=== PATIENT | male | born 1950 | race Caucasian/White ===

== ENCOUNTER 2017-10-01 17:10 | Emergency (ER) | payer MEDICARE ==
--- NOTE | 2017-10-01 18:36 | EDM.PDOC ---
ED HPI GENERAL MEDICAL PROBLEM - General Chief Complaint: Genitourinary Problem Stated Complaint: BLADDER INFECTION Time Seen by Provider: 10/01/17 18:35 Source of Information: Reports: Patient History Limitations: Reports: No Limitations - History of Present Illness INITIAL COMMENTS - FREE TEXT/NARRATIVE: HISTORY AND PHYSICAL: History of present illness: Patient is a 67-year-old male who presents to the emergency room today with complaints of urinary retention with urination. He states he does have a history of BPH and has been taking medications provided by his primary caregiver , Dr. Dos Santos 3 years. Has not seen a urologist for any previous genitourinary urinary conditions. He denies any fever, chills, chest pain, shortness of breath or cough. Denies any abdominal pain, nausea, vomiting, diarrhea or constipation. Review of systems: As per history of present illness and below otherwise all systems reviewed and negative. Past medical history: As per history of present illness and as reviewed below otherwise noncontributory. Surgical history: As per history of present illness and as reviewed below otherwise noncontributory. Social history: No reported history of drug or alcohol abuse. Family history: As per history of present illness and as reviewed below otherwise noncontributory. Physical exam: General: Well-developed and well-nourished 67-year-old male. Alert and oriented. Nontoxic appearing and in no acute distress. HEENT: Atraumatic, normocephalic, pupils equal and reactive bilaterally, negative for conjunctival pallor or scleral icterus, mucous membranes moist, throat clear, neck supple, nontender, trachea midline. No drooling or trismus noted. No meningeal signs Lungs: Clear to auscultation, breath sounds equal bilaterally, chest nontender. Heart: S1S2, regular rate and rhythm without overt murmur Abdomen: Soft, nondistended, nontender. Negative for masses or hepatosplenomegaly. Negative for costovertebral tenderness. Pelvis: Stable, suprapubic tenderness, semi-distended and firm. Genitourinary: Deferred. Rectal: Deferred. Skin: Intact, warm, dry. No lesions or rashes noted. Extremities: Atraumatic, negative for cords or calf pain. Neurovascular unremarkable. Neuro: Awake, alert, oriented. Cranial nerves II through XII unremarkable. Cerebellum unremarkable. Motor and sensory unremarkable throughout. Exam nonfocal. Notes: Bladder scanner shows greater than 700 prior to voiding. A catheter was inserted to alleviate his discomfort, 900 was drainage from the Sapp catheter. Urinalysis is negative for UTI or blood. I did contact Dr. Guzman, the urologist, who is agreeable to seeing this patient in clinic tomorrow. We will keep the Sapp in place and provided patient with education and a leg bag. At this time the patient does not need any antibiotics. A CMP will be added per Dr. Guzman's request. All this information was shared with the patient. He is agreeable to plan of care and denies any further questions at this time. Diagnostics: UA, bladder scanner Therapeutics: Sapp catheter insertion Impression: Urinary retention Plan: 1. Please continue to provide good edie-care and drain the catheter as needed. 2. Follow up with Dr Martínez tomorrow for further evaluation and management ( call early tomorrow morning to set up your appointment). 3. Return to the ED as needed and as discussed. Definitive disposition and diagnosis as appropriate pending reevaluation and review of above. Duration: Day(s): Location: Reports: Pelvis Bladder Pain Score (Numeric/FACES): 7 - Related Data Allergies Allergy/AdvReac Type Severity Reaction Status Date / Time No Known Allergies Allergy Verified 10/01/17 17:34 Home Meds: Home Meds . [Unable to Verify Home Med List] 10/01/17 [History] Past Medical History Genitourinary History: Reports: Prostate Disorder Social & Family History - Tobacco Use Smoking Status *Q: Never Smoker ED ROS GENERAL - Review of Systems Review Of Systems: ROS reveals no pertinent complaints other than HPI. ED EXAM, GI/ABD - Physical Exam Exam: See Below (See dictation) Course - Vital Signs Last Recorded V/S: Last Vital Signs Temp 96.8 F 10/01/17 17:34 Pulse 70 10/01/17 17:34 Resp 16 10/01/17 17:34 BP 186/90 H 10/01/17 17:34 Pulse Ox 95 10/01/17 17:34 - Orders/Labs/Meds Orders: Active Orders 24 hr Category Date Time Status CMP [COMPREHENSIVE METABOLIC PN,CMP] [CHEM] Stat Lab 10/01/17 18:41 Ordered UA W/MICROSCOPIC [URIN] Stat Lab 10/01/17 18:08 Ordered Labs: Laboratory Tests 10/01/17 Range/Units 18:08 Urine Color YELLOW Urine Appearance CLEAR Urine pH 6.0 (5.0-8.0) Ur Specific [place] 1.020 (1.001-1.035) Urine Protein NEGATIVE (NEGATIVE) mg/dL Urine Glucose (UA) NEGATIVE (NEGATIVE) mg/dL Urine Ketones NEGATIVE (NEGATIVE) mg/dL Urine Occult Blood TRACE-INTACT (NEGATIVE) Urine Nitrite NEGATIVE (NEGATIVE) Urine Bilirubin NEGATIVE (NEGATIVE) Urine Urobilinogen 0.2 (<2.0) EU/dL Ur Leukocyte Esterase NEGATIVE (NEGATIVE) Urine RBC 0-2 (0-2/HPF) Urine WBC 0-2 (0-5/HPF) Ur Epithelial Cells RARE (NONE-FEW) Urine Bacteria RARE (NEGATIVE) Urine Mucus LIGHT (NONE-MOD) Departure - Departure Time of Disposition: 18:49 Disposition: Home, Self-Care 01 Clinical Impression: Urinary retention - Discharge Information Referrals: Eduardo Dos Santos MD [Primary Care Provider] - Forms: ED Department Discharge Additional Instructions: The following information is given to patients seen in the emergency department who are being discharged to home. This information is to outline your options for follow-up care. We provide all patients seen in our emergency department with a follow-up referral. The need for follow-up, as well as the timing and circumstances, are variable depending upon the specifics of your emergency department visit. If you don't have a primary care physician on staff, we will provide you with a referral. We always advise you to contact your personal physician following an emergency department visit to inform them of the circumstance of the visit and for follow-up with them and/or the need for any referrals to a consulting specialist. The emergency department will also refer you to a specialist when appropriate. This referral assures that you have the opportunity for follow-up care with a specialist. All of these measure are taken in an effort to provide you with optimal care, which includes your follow-up. Under all circumstances we always encourage you to contact your private physician who remains a resource for coordinating your care. When calling for follow-up care, please make the office aware that this follow-up is from your recent emergency room visit. If for any reason you are refused follow-up, please contact the [facility] Emergency Department at and asked to speak to the emergency department charge nurse. [facility] Specialty Care - Urology [facility] [place] [address] 1. Please continue to provide good edie-care and drain the catheter as needed. 2. Follow up with Dr Martínez tomorrow for further evaluation and management ( call early tomorrow morning to set up your appointment). 3. Return to the ED as needed and as discussed. - My Orders Last 24 Hours: My Active Orders 10/01/17 18:08 UA W/MICROSCOPIC [URIN] Stat 10/01/17 18:41 CMP [COMPREHENSIVE METABOLIC PN,CMP] [CHEM] Stat - Assessment/Plan Last 24 Hours: My Active Orders 10/01/17 18:08 UA W/MICROSCOPIC [URIN] Stat 10/01/17 18:41 CMP [COMPREHENSIVE METABOLIC PN,CMP] [CHEM] Stat
[2017-10-01 19:16] LABS: CHLORIDE,CL 104 mmol/L (98-107); SODIUM,NA 140 mmol/L (136-148)
== END 2017-10-01 19:15 | disposition home or self-care (01) ==
LOC: MW.ED 17:10
DX: R33.9 Retention of urine, unspecified (principal)
CPT/HCPCS: 36415; 80053; 81001; 99283

== ENCOUNTER 2017-10-05 21:41 | Emergency (ER) | payer MEDICARE ==
--- NOTE | 2017-10-05 21:51 | EDM.PDOC ---
ED HPI GENERAL MEDICAL PROBLEM - General Chief Complaint: Genitourinary Problem Stated Complaint: DIFFICULTY URINATING Time Seen by Provider: 10/05/17 21:51 Source of Information: Reports: Patient History Limitations: Reports: No Limitations - History of Present Illness INITIAL COMMENTS - FREE TEXT/NARRATIVE: HISTORY AND PHYSICAL: History of present illness: 67-year-old male visiting emergency department with chief complaint of urinary retention. Patient states that he was seen here in the emergency department this last Monday 4 days ago for similar symptoms. At that time they did a bladder scan as well as put acatheter and scheduled him to see Dr. Martínez, urologist. States that at that time his urine was fine with no signs of infection. He did see Dr. Guzman today who told him that he deftly need surgery for enlarged prostate. Sheen at that time and told him that if he removed his catheter he may have problems with urination and needed replaced. States he did remove the catheter and hasn't been able to urinate since 1600 today. Denies any fever, chills, nausea, vomiting, or other signs of systemic infection. Does report some recent dysuria. Currently denies any chest pain, palpitations, shortness breath, syncopal, or focal neurologic deficits. Review of systems: As per history of present illness and below otherwise all systems reviewed and negative. Past medical history: As per history of present illness and as reviewed below otherwise noncontributory. Surgical history: As per history of present illness and as reviewed below otherwise noncontributory. Social history: No reported history of drug or alcohol abuse. Family history: As per history of present illness and as reviewed below otherwise noncontributory. Physical exam: HEENT: Atraumatic, normocephalic, pupils reactive, negative for conjunctival pallor or scleral icterus, mucous membranes moist, throat clear, neck supple, nontender, trachea midline. Lungs: Clear to auscultation, breath sounds equal bilaterally, chest nontender. Heart: S1S2, regular, negative for clicks, rubs, or JVD. Abdomen: Soft, nondistended, nontender. Negative for masses or hepatosplenomegaly. Negative for costovertebral tenderness. Pelvis: Stable nontender. Genitourinary: Deferred. Rectal: Deferred. Extremities: Atraumatic, negative for cords or calf pain. Neurovascular unremarkable. Neuro: Awake, alert, oriented. Cranial nerves II through XII unremarkable. Cerebellum unremarkable. Motor and sensory unremarkable throughout. Exam nonfocal. Diagnostics: Bladder scan Therapeutics: Urinary catheter Impression: Urinary retention BPH Plan: Bladder scan showed 438 and urine catheter was placed without complication. We did check a UA which showed no signs of acute infection. Patient was discharged and instructed to follow-up with Dr. Martínez which he will do tomorrow. He was instructed to return to emergency department if he had any new or worsening symptoms. hypogastric Pain Score (Numeric/FACES): 7 - Related Data Allergies Allergy/AdvReac Type Severity Reaction Status Date / Time No Known Allergies Allergy Verified 10/05/17 22:03 Home Meds: Home Meds Lisinopril 1 tab PO DAILY 10/05/17 [History] Tamsulosin [Flomax] 1 cap PO DAILY 10/05/17 [History] Past Medical History Genitourinary History: Reports: Prostate Disorder ED ROS GENERAL - Review of Systems Review Of Systems: ROS reveals no pertinent complaints other than HPI. ED EXAM, GENERAL - Physical Exam Exam: See Below Course - Vital Signs Last Recorded V/S: Last Vital Signs Temp 97.5 F 10/05/17 21:41 Pulse 83 10/05/17 21:41 Resp 16 10/05/17 21:41 BP 155/90 H 10/05/17 21:41 Pulse Ox 94 L 10/05/17 21:41 - Orders/Labs/Meds Orders: Active Orders 24 hr Category Date Time Status Urinary Catheter Assessment [RC] ASDIRECTED Care 10/05/17 23:11 Ordered CULTURE URINE [RM] Stat Lab 10/05/17 23:00 Received UA W/MICROSCOPIC [URIN] Stat Lab 10/05/17 23:00 Received Departure - Departure Time of Disposition: 23:13 Disposition: Home, Self-Care 01 Condition: Good Clinical Impression: Urinary retention due to benign prostatic hyperplasia - Discharge Information Referrals: Eduardo Dos Santos MD [Primary Care Provider] - Forms: ED Department Discharge Additional Instructions: My general discharge The following information is given to patients seen in the emergency department who are being discharged to home. This information is to outline your options for follow-up care. We provide all patients seen in our emergency department with a follow-up referral. The need for follow-up, as well as the timing and circumstances, are variable depending upon the specifics of your emergency department visit. If you don't have a primary care physician on staff, we will provide you with a referral. We always advise you to contact your personal physician following an emergency department visit to inform them of the circumstance of the visit and for follow-up with them and/or the need for any referrals to a consulting specialist. The emergency department will also refer you to a specialist when appropriate. This referral assures that you have the opportunity for follow-up care with a specialist. All of these measure are taken in an effort to provide you with optimal care, which includes your follow-up. Under all circumstances we always encourage you to contact your private physician who remains a resource for coordinating your care. When calling for follow-up care, please make the office aware that this follow-up is from your recent emergency room visit. If for any reason you are refused follow-up, please contact the [facility] Emergency Department at and asked to speak to the emergency department charge nurse. [facility] Specialty Care - Urology [address] [place] [address] Follow-up with urology. Return to emergency department if any new or worsening symptoms. - My Orders Last 24 Hours: My Active Orders 10/05/17 23:00 CULTURE URINE [RM] Stat UA W/MICROSCOPIC [URIN] Stat 10/05/17 23:11 Urinary Catheter Assessment [RC] ASDIRECTED - Assessment/Plan Last 24 Hours: My Active Orders 10/05/17 23:00 CULTURE URINE [RM] Stat UA W/MICROSCOPIC [URIN] Stat 10/05/17 23:11 Urinary Catheter Assessment [RC] ASDIRECTED
== END 2017-10-05 23:40 | disposition home or self-care (01) ==
LOC: MW.ED 21:41
DX: N40.1 Benign prostatic hyperplasia with lower urinary tract symptoms (principal); R33.8 Other retention of urine
CPT/HCPCS: 81001; 87086; 99283

== ENCOUNTER 2017-12-26 09:28 | Emergency (ER) | payer MEDICARE ==
--- NOTE | 2017-12-26 09:50 | EDM.PDOC ---
ED HPI GENERAL MEDICAL PROBLEM - General Chief Complaint: Genitourinary Problem Stated Complaint: CATHETER LEAKAGE Time Seen by Provider: 12/26/17 09:30 Source of Information: Reports: Patient History Limitations: Reports: No Limitations - History of Present Illness INITIAL COMMENTS - FREE TEXT/NARRATIVE: History of present illness: []Patient has prostate mass and has an indwelling catheter that is now leaking. He was initially put in 30 days ago and has not been changed since. Review of systems: As per history of present illness and below otherwise all systems reviewed and negative. Past medical history: As per history of present illness and as reviewed below otherwise noncontributory. Surgical history: As per history of present illness and as reviewed below otherwise noncontributory. Social history: No reported history of drug or alcohol abuse. Family history: As per history of present illness and as reviewed below otherwise noncontributory. Physical exam: General: Well developed, well nourished in NAD HEENT: Atraumatic, normocephalic, pupils reactive, negative for conjunctival pallor or scleral icterus, mucous membranes moist, throat clear, neck supple, nontender, trachea midline. Lungs: Clear to auscultation, breath sounds equal bilaterally, chest nontender. Heart: S1S2, regular, negative for clicks, rubs, or JVD. Abdomen: Soft, nondistended, nontender. Negative for masses or hepatosplenomegaly. Negative for costovertebral tenderness. Pelvis: Stable nontender. Genitourinary: Deferred. Rectal: Deferred. Extremities: Atraumatic, negative for cords or calf pain. Neurovascular unremarkable. Neuro: Awake, alert, oriented. Cranial nerves II through XII unremarkable. Cerebellum unremarkable. Motor and sensory unremarkable throughout. Exam nonfocal. Skin:warm and dry Diagnostics: UA positive for UTI with an white cells Therapeutics: Sapp catheter changed while in the ED ED Course: Unremarkable Impression: Sapp catheter change, UTI Prescriptions: Bactrim as directed Plan: Continue meds follow up with Dr. Martínez return if symptoms worsen or change Definitive disposition and diagnosis as appropriate pending reevaluation and review of above. Penis Pain Score (Numeric/FACES): 4 - Related Data Allergies Allergy/AdvReac Type Severity Reaction Status Date / Time No Known Allergies Allergy Verified 10/05/17 22:03 Home Meds: Home Meds Lisinopril 1 tab PO DAILY 10/05/17 [History] Tamsulosin [Flomax] 1 cap PO DAILY 10/05/17 [History] Sulfamethoxazole/Trimethoprim [Bactrim Ds Tablet] 1 each PO BID #20 tablet 12/26 [Rx] Past Medical History Cardiovascular History: Reports: Hypertension Genitourinary History: Reports: Prostate Disorder - Past Surgical History Musculoskeletal Surgical History: Reports: Hip Replacement Social & Family History - Family History Family Medical History: Noncontributory ED ROS GENERAL - Review of Systems Review Of Systems: ROS reveals no pertinent complaints other than HPI. ED EXAM, RENAL/ - Physical Exam Exam: See Below (See history of present illness) Course - Vital Signs Last Recorded V/S: Last Vital Signs Temp 98.0 F 12/26/17 09:39 Pulse 69 12/26/17 09:39 Resp 18 12/26/17 09:39 BP 151/93 H 12/26/17 09:39 Pulse Ox 97 12/26/17 09:39 - Orders/Labs/Meds Orders: Active Orders 24 hr Category Date Time Status Insert Sapp Catheter [Insert Urinary Catheter] [OM.PC] Care 12/26/17 10:15 Ordered Q24H Urinary Catheter Assessment [RC] ASDIRECTED Care 12/26/17 10:12 Active CULTURE URINE [RM] Stat Lab 12/26/17 10:39 Ordered Labs: Laboratory Tests 12/26/17 Range/Units 09:49 Urine Color RED Urine Appearance SLT CLOUDY Urine pH 7.0 (5.0-8.0) Ur Specific [place] 1.020 (1.001-1.035) Urine Protein 100 (NEGATIVE) mg/dL Urine Glucose (UA) NEGATIVE (NEGATIVE) mg/dL Urine Ketones NEGATIVE (NEGATIVE) mg/dL Urine Occult Blood LARGE H (NEGATIVE) Urine Nitrite POSITIVE H (NEGATIVE) Urine Bilirubin NEGATIVE (NEGATIVE) Urine Urobilinogen 0.2 (<2.0) EU/dL Ur Leukocyte Esterase MODERATE (NEGATIVE) Urine RBC TOO NUMEROUS TO CT (0-2/HPF) Urine WBC 8-10 (0-5/HPF) Ur Epithelial Cells RARE (NONE-FEW) Urine Bacteria FEW (NEGATIVE) Urine Mucus LIGHT (NONE-MOD) Departure - Departure Time of Disposition: 10:41 Disposition: Home, Self-Care 01 Condition: Good Clinical Impression: Urinary catheter (Sapp) change required UTI (urinary tract infection) Qualifiers: Urinary tract infection type: site unspecified Hematuria presence: with hematuria Qualified Code(s): N39.0 - Urinary tract infection, site not specified ; R31.9 - Hematuria, unspecified - Discharge Information *PRESCRIPTION DRUG MONITORING PROGRAM REVIEWED*: No *COPY OF PRESCRIPTION DRUG MONITORING REPORT IN PATIENT LINO: No Prescriptions: Sulfamethoxazole/Trimethoprim [Bactrim Ds Tablet] 1 each PO BID #20 tablet Referrals: Eduardo Dos Santos MD [Primary Care Provider] - Forms: ED Department Discharge Additional Instructions: The following information is given to patients seen in the emergency department who are being discharged to home. This information is to outline your options for follow-up care. We provide all patients seen in our emergency department with a follow-up referral. The need for follow-up, as well as the timing and circumstances, are variable depending upon the specifics of your emergency department visit. If you don't have a primary care physician on staff, we will provide you with a referral. We always advise you to contact your personal physician following an emergency department visit to inform them of the circumstance of the visit and for follow-up with them and/or the need for any referrals to a consulting specialist. The emergency department will also refer you to a specialist when appropriate. This referral assures that you have the opportunity for follow-up care with a specialist. All of these measure are taken in an effort to provide you with optimal care, which includes your follow-up. Under all circumstances we always encourage you to contact your private physician who remains a resource for coordinating your care. When calling for follow-up care, please make the office aware that this follow-up is from your recent emergency room visit. If for any reason you are refused follow-up, please contact the [facility] Emergency Department at and asked to speak to the emergency department charge nurse. Bactrim as directed increase fluids follow-up with Dr. Mauricio PARKS [facility] Specialty Care - Urology [address] [place] [id number] - My Orders Last 24 Hours: My Active Orders 12/26/17 10:12 Urinary Catheter Assessment [RC] ASDIRECTED 12/26/17 10:15 Insert Sapp Catheter [Insert Urinary Catheter] [OM.PC] Q24H 12/26/17 10:39 CULTURE URINE [RM] Stat - Assessment/Plan Last 24 Hours: My Active Orders 12/26/17 10:12 Urinary Catheter Assessment [RC] ASDIRECTED 12/26/17 10:15 Insert Spap Catheter [Insert Urinary Catheter] [OM.PC] Q24H 12/26/17 10:39 CULTURE URINE [RM] Stat
== END 2017-12-26 11:05 | disposition home or self-care (01) ==
LOC: MW.ED 09:28
DX: Z46.6 Encounter for fitting and adjustment of urinary device (principal); N39.0 Urinary tract infection, site not specified; I10 Essential (primary) hypertension; Z79.899 Other long term (current) drug therapy
CPT/HCPCS: 81001; 87086; 87088; 87186; 99283

== ENCOUNTER 2018-01-21 05:21 | Emergency (ER) | payer MEDICARE ==
--- NOTE | 2018-01-21 05:31 | EDM.PDOC ---
ED HPI GENERAL MEDICAL PROBLEM - General Chief Complaint: Genitourinary Problem Stated Complaint: PROBLEMS WITH CATHETER Time Seen by Provider: 01/21/18 05:27 - History of Present Illness INITIAL COMMENTS - FREE TEXT/NARRATIVE: HISTORY AND PHYSICAL: History of present illness: The patient is a 67-year-old male who presents this morning with complaints of problems with his Sapp catheter. The patient has had a catheter in place for 3- 1/2 months with the initial one being placed here in mid September. He has followed up with Dr. Martínez and says that he is going to have surgery but that has not been scheduled yet for a TURP. Patient says that the Sapp has been working properly until this morning and then he started draining around it and feels that his block. Similar has happened in the past. He does not feel like his bladder is bloated and he has no lower abdominal or pelvic pain no flank pain no fevers chills nausea vomiting. He otherwise has been eating and drinking normally and has no other issues. According to the computer the patient has seen Dr. Martínez our urologist multiple times for similar issues and also followed with Dr. Dos Santos at [facility] for 3 years for BPH managed with medications. According to the computer he had his first Sapp catheter placed here in the ED on October 01 of this year. He has been in and out of the ED multiple times since then for catheter issues or drainage issues. Patient was last seen here on December 26 and was given antibiotics Review of systems: As per history of present illness and below otherwise all systems reviewed and negative. Past medical history: As per history of present illness and as reviewed below otherwise noncontributory. Surgical history: As per history of present illness and as reviewed below otherwise noncontributory. Social history: No reported history of drug or alcohol abuse. Family history: As per history of present illness and as reviewed below otherwise noncontributory. Physical exam: General: Well-developed well-nourished male who is nontoxic and vital signs are reviewed by me HEENT: Atraumatic, normocephalic, negative for conjunctival pallor or scleral icterus, mucous membranes moist, throat clear, neck supple, nontender, trachea midline. Lungs: Clear to auscultation, breath sounds equal bilaterally, chest nontender. Heart: S1S2, regular rate and rhythm no overt murmurs Abdomen: Soft, nondistended, nontender. Negative for masses or hepatosplenomegaly. NABS. His bladder is not grossly tensor distended Pelvis: Stable nontender. Genitourinary: Deferred. There is no urine output seen in his leg bag currently Rectal: Deferred. Extremities: Atraumatic, negative for cords or calf pain. Neurovascular unremarkable. Neuro: Awake, alert, oriented. Cranial nerves II through XII unremarkable. Cerebellum unremarkable. Motor and sensory unremarkable throughout. Exam nonfocal. Diagnostics: UA urine culture Therapeutics: Sapp catheter change was performed by nursing Impression: Sapp catheter malfunction, recurrent UTI Definitive disposition and diagnosis as appropriate pending reevaluation and review of above. - Related Data Allergies Allergy/AdvReac Type Severity Reaction Status Date / Time No Known Allergies Allergy Verified 01/21/18 05:32 Home Meds: Home Meds Lisinopril/Hydrochlorothiazide [Lisinopril-Hctz 20-25 mg Tab] 20 - 25 ng PO DAILY 01/21/18 [History] Past Medical History HEENT History: Reports: Hard of Hearing Cardiovascular History: Reports: Hypertension Genitourinary History: Reports: Prostate Disorder - Past Surgical History Musculoskeletal Surgical History: Reports: Hip Replacement Social & Family History - Family History Family Medical History: Noncontributory ED ROS GENERAL - Review of Systems Review Of Systems: ROS reveals no pertinent complaints other than HPI. ED EXAM, GENERAL - Physical Exam Exam: See Below (See dictation) Course - Vital Signs Last Recorded V/S: Last Vital Signs Temp 36.4 C 01/21/18 05:28 Pulse 63 01/21/18 05:28 Resp 20 01/21/18 05:28 BP 142/77 H 01/21/18 05:28 Pulse Ox 94 L 01/21/18 05:28 - Orders/Labs/Meds Orders: Active Orders 24 hr Category Date Time Status Communication Order [RC] STAT Care 01/21/18 05:37 Active CULTURE URINE [RM] Stat Lab 01/21/18 05:37 Received Labs: Laboratory Tests 01/21/18 Range/Units 05:37 Urine Color RED Urine Appearance CLOUDY Urine pH 7.5 (5.0-8.0) Ur Specific [place] 1.020 (1.001-1.035) Urine Protein >=300 (NEGATIVE) mg/dL Urine Glucose (UA) NEGATIVE (NEGATIVE) mg/dL Urine Ketones TRACE H (NEGATIVE) mg/dL Urine Occult Blood LARGE H (NEGATIVE) Urine Nitrite POSITIVE H (NEGATIVE) Urine Bilirubin SMALL H (NEGATIVE) Urine Urobilinogen 1.0 (<2.0) EU/dL Ur Leukocyte Esterase LARGE (NEGATIVE) Urine RBC TOO NUMEROUS TO CT (0-2/HPF) Urine WBC 25-30 (0-5/HPF) Ur Epithelial Cells RARE (NONE-FEW) Amorphous Sediment FEW (NEGATIVE) Urine Bacteria 3+ H (NEGATIVE) Urine Mucus FEW (NONE-MOD) Urine Other Urinalysis Comment Departure - Departure Time of Disposition: 06:09 Disposition: Home, Self-Care 01 Condition: Good Clinical Impression: Recurrent UTI Malfunction of Sapp catheter Qualifiers: Encounter type: subsequent encounter Qualified Code(s): T83.011D - Breakdown ( mechanical) of indwelling urethral catheter, subsequent encounter - Discharge Information Referrals: Eduardo Dos Santos MD [Primary Care Provider] - Forms: ED Department Discharge Additional Instructions: The following information is given to patients seen in the emergency department who are being discharged to home. This information is to outline your options for follow-up care. We provide all patients seen in our emergency department with a follow-up referral. The need for follow-up, as well as the timing and circumstances, are variable depending upon the specifics of your emergency department visit. If you don't have a primary care physician on staff, we will provide you with a referral. We always advise you to contact your personal physician following an emergency department visit to inform them of the circumstance of the visit and for follow-up with them and/or the need for any referrals to a consulting specialist. The emergency department will also refer you to a specialist when appropriate. This referral assures that you have the opportunity for followup care with a specialist. All of these measure are taken in an effort to provide you with optimal care, which includes your followup. Under all circumstances we always encourage you to contact your private physician who remains a resource for coordinating your care. When calling for followup care, please make the office aware that this follow-up is from your recent emergency room visit. If for any reason you are refused follow-up, please contact the [facility] emergency department at and ask to speak to the emergency department charge nurse. [facility] [address] [place] [address] Please keep your follow-up appointment with Dr. Martínez as scheduled midline. Continue to monitor Sapp catheter output and return to ER as needed and as discussed. Please take antibiotics as prescribed, ciprofloxacin, that you've been prescribed the [employer] Meds. - My Orders Last 24 Hours: My Active Orders 01/21/18 05:37 Communication Order [RC] STAT CULTURE URINE [RM] Stat - Assessment/Plan Last 24 Hours: My Active Orders 01/21/18 05:37 Communication Order [RC] STAT CULTURE URINE [RM] Stat
== END 2018-01-21 06:40 | disposition home or self-care (01) ==
LOC: MW.ED 05:21
DX: T83.011D Breakdown (mechanical) of indwelling urethral catheter, subsequent encounter (principal); N39.0 Urinary tract infection, site not specified; I10 Essential (primary) hypertension; Z79.899 Other long term (current) drug therapy
CPT/HCPCS: 81001; 87086; 87088; 87186; 99282; 99283